=== PATIENT | female | born 1950 | race Caucasian/White ===

== ENCOUNTER 2016-05-20 14:46 | Emergency (ER) | payer OTHER ==
[~2016-05-20] VITALS: Ht 167.6 cm; Wt 90.7 kg
[~2016-05-20 14:46] MED LIST: NAPHCON-A EYE D15 ML OP; TOBRAMYCIN-DEXAM5 ML OPH
[2016-05-20] MEDS ORDERED: VALTREX1000 MG PO (15:32)
--- NOTE | 2016-05-20 15:33 | ED SKIN/ALLERGY COMPLAINT ---
History of Present Illness General Chief Complaint: General Adult Stated Complaint: PT HAS A PAIN AND RASH IN THE LEFT SIDE Source: patient Exam Limitations: no limitations Vital Signs & Intake/Output Vital Signs & Intake/Output Vital Signs Date Time Temp Pulse Resp B/P Pulse O2 O2 Flow FiO2 Ox Delivery Rate 05/20 1500 96.9 110 18 150/81 96 Room Air Allergies Coded Allergies: No Known Allergies (08/22/15) Reconcile Medications Naphazoline HCl/Pheniramine (Naphcon-A Eye Drops) 15 ML DROPS 1 GTT OP BID CONJUNCTIVITIS Tobramycin/Dexamethasone (Tobramycin-Dexameth Ophth Susp) 5 ML DROPS.SUSP 1 GTT OPH 4 TIMES/DAY CONJUNCTIVITIS Valacyclovir HCl (Valtrex) 1,000 MG TABLET 1 TAB PO TID SHINGLES Triage Note: PT STATES THAT YESTERDAY SHE HAD A PAIN TO HER LLE, TODAY SHE WOKE WITH A RASH TO HER LLE , PAINFUL Triage Nurses Notes Reviewed? yes HPI: Patient is having pain to the anterior medial left lower leg, distal thigh and knee area. Today she started getting a blistery rash with erythematous base in that area. The pain has improved but the rash is getting worse. She has had no injury to the area, no history of same history of shingles. She does have history of chickenpox. She has no fever or flulike illness no treatment thus far no modifying factors. Past History Travel History Traveled to [place] past 21 day No Medical History Any Pertinent Medical History? none Neurological: NONE EENT: NONE Cardiovascular: NONE Respiratory: NONE Gastrointestinal: NONE Hepatic: NONE Renal: NONE Musculoskeletal: NONE Psychiatric: NONE Endocrine: NONE Blood Disorders: NONE Cancer(s): NONE OB GYN/Reproductive: NONE Surgical History Surgical History: non-contributory Psychosocial History What is your primary language Sami Tobacco Use: Never used ETOH Use: denies use Illicit Drug Use: denies illicit drug use Family History Hx Contributory? No Review of Systems Review of Systems Constitutional: Reports: see HPI. EENTM: Reports: no symptoms. Respiratory: Reports: no symptoms. Cardiovascular: Reports: no symptoms. GI: Reports: no symptoms. Genitourinary: Reports: no symptoms. Musculoskeletal: Reports: see HPI. Skin: Reports: see HPI. Neurological/Psychological: Reports: no symptoms. Hematologic/Endocrine: Reports: no symptoms. Immunologic/Allergic: Reports: no symptoms. All Other Systems: Reviewed and Negative Physical Exam Physical Exam General Appearance: well developed/nourished, mild distress Head: atraumatic Eyes: Bilateral: PERRL, EOMI. Ears, Nose, Throat: normal pharynx, normal ENT inspection, hearing grossly normal Neck: normal inspection, supple Respiratory: normal breath sounds Cardiovascular: regular rate/rhythm Gastrointestinal: soft, non-tender Back: normal inspection Extremities: normal inspection, normal range of motion, no edema Neurologic/Psych: awake, alert, oriented x 3, normal mood/affect Skin: LEFT LOWER LEG, DISTAL MEDIAL THIGH AND ANTEROMEDIAL LOWER LEG WITH A VESICULAR TYPE RASH WITH ERYTHEMATOUS BASE IN GROUPS IN CLUSTERS. nONTENDER. Lymphatic: no anterior cervical dioni Progress Differential Diagnosis: abscess/cellulitis, allergic reaction, anaphylaxis, angioedema, asthma, contact dermatitis, drug reaction, erythema multiforme, lyme disease, meningitis/sepsis, piyriasis rosea, RMSF, scarlet fever, shingles, syphilis/gonococcemia, toxic shock syndrome, urticaria Plan of Care: Likely shingles rash, recommend Valtrex as rash started within the last 48 HRS. to follow-up with primary care doctor with worsening symptoms Departure Departure Disposition: HOME OR SELF CARE Condition: Stable Clinical Impression Primary Impression: Shingles Qualifiers: Herpes zoster complications: unspecified herpes zoster complication Qualified Code: B02.8 - Zoster with other complications Referrals: CHOLO BRITTON,Evita TAYLOR (PCP/Family) Additional Instructions: Take antiviral medication as directed for shingles. Motrin and Tylenol as needed for pain. If the rash starts to spread or he started getting worsening pain, please contact your primary care doctor Departure Forms: Customer Survey General Discharge Information Prescriptions: Current Visit Scripts Valacyclovir HCl (Valtrex) 1 TAB PO TID #21 TAB
[2016-05-20 15:41] VITALS: BP 135/67
== END 2016-05-20 15:54 ==
LOC: ERH 14:46
DX: B02.9 Zoster without complications (principal)